=== PATIENT | female | born 1985 | race African-American/Black ===

== ENCOUNTER 2016-08-09 13:44 | Emergency (ER) | payer OTHER ==
[~2016-08-09] VITALS: Ht 160 cm; Wt 132.0 kg
[~2016-08-09 13:44] MED LIST: AMOX875 PO; CHLO.12%30 SSP; CLIN150 PO; IBUP600T26 PO; IBUP800T23 PO; MMW SSP; ROBA750T3 PO; TRAM50 PO; ULTR50TA PO
[2016-08-09 13:48] VITALS: PULSE 72; RESP 16; TEMP 99.2; O2SAT 100
--- NOTE | 2016-08-09 15:09 | PD ---
HPI . flu like symptoms Chief Complaint: Cold / Flu Symptoms Time Seen by Provider: 15:09 Travel History International Travel<30 days: No Contact w/Intl Traveler<30days: No Traveled to known affect area: No History of Present Illness HPI 30 Year-old female no significant past medical history here with complaints of flulike symptoms for the past week. Patient says she has had fever, but never checked her temperature. She also reports chills and body aches. Last night she had nausea and vomiting all night long. She says she was vomiting liquid. When asked about possibility of , she says it does exist. She denies any sore throat, cough, chest pain, or abdominal pain. She has no other complaints. PFSH Past Medical History Diminished Hearing: No ?: Unknown LMP: LMP END OF MAY Social History Alcohol Use: No Tobacco Use: Yes (/2 PPD) Substance Use: No Allergies-Medications (Allergen,Severity, Reaction): Coded Allergies: No Known Allergies (Unverified , 08/09/16) Reported Meds & Prescriptions Reported Meds & Active Scripts Active Ibuprofen 600 Mg Tab 600 Mg PO TID Robaxin-750 (Methocarbamol) 750 Mg Tab 750 Mg PO QID PRN Ultram (Tramadol HCl) 50 Mg Tab 1-2 Tabs PO Q6 PRN Peridex Oral Rinse (Chlorhexidine Gluconate) 0.12 % Елена 15 Ml SSP BID 10 Days Cleocin (Clindamycin HCl) 150 Mg Cap 2 Tab PO QID Review of Systems General / Constitutional: Positive: Fever, Chills Eyes: No: Visual changes HENT: No: Headaches Cardiovascular: No: Chest Pain or Discomfort Respiratory: No: Shortness of Breath Gastrointestinal: Positive: Nausea, No: Abdominal Pain Genitourinary: No: Dysuria Musculoskeletal: No: Pain Skin: No Rash Neurologic: No: Weakness Psychiatric: No: Depression Endocrine: No: Polydipsia Hematologic/Lymphatic: No: Easy Bruising Physical Exam Narrative GENERAL: AAO x 3, no acute distress, Well-nourished, well-developed patient. SKIN: Warm and dry. No visible rashes or bruising. HEAD: Normocephalic and atraumatic. EYES: No scleral icterus. No injection or drainage. ENT: No nasal drainage noted. Mucous membranes pink. Airway patent. Normal posterior pharynx. No edema no exudates. TMs normal bilaterally. NECK: Supple, trachea midline. No JVD. No lymphadenopathy. CARDIOVASCULAR: Regular rate and rhythm without murmurs, gallops, or rubs. RESPIRATORY: Breath sounds equal bilaterally. No accessory muscle use. No rhonchi or rales. GASTROINTESTINAL: Abdomen soft, non-tender, nondistended. EXTREMITIES: No cyanosis or edema. BACK: Nontender without obvious deformity. No CVA tenderness. PSYCH: AAO x 3, normal affect. Data Data Last Documented VS Vital Signs Date Time Temp Pulse Resp B/P Pulse Ox O2 Delivery O2 Flow Rate FiO2 08/09/16 13:48 99.2 72 16 100 Orders Ed Urine Pregnancytest Poc (08/09/16 15:12) MDM Medical Decision Making Medical Screen Exam Complete: Yes Emergency Medical Condition: Yes Medical Record Reviewed: Yes Differential Diagnosis viral syndrome, acute sinusitis, less likely PNA Narrative Course 30 Year-old female no significant past medical history here with complaints of flulike symptoms for the past week. Patient says she has had fever, but never checked her temperature. She also reports chills and body aches. Last night she had nausea and vomiting all night long. She says she was vomiting liquid. When asked about possibility of , she says it does exist. She denies any sore throat, cough, chest pain, or abdominal pain. She has no other complaints. Patient seen and examined. She does not have any acute findings on exam. I truly believe she may be . Urine test ordered. It is positive. She has no abdominal pain or any abdominal complaints. My suspicion for any type of ectopic is very low. Discussed with patient. Explained that she still establish with an [facility] for follow-up and treatment Patient verbalized understanding of instructions, questions were answered, and thanked me for their care. I advised them if their condition worsens, please return to the nearest emergency room for further care. Diagnosis Primary Impression: Nausea Patient Instructions: General Instructions Additional Instructions: Please return to emergency department if your symptoms return or worsen. Follow up with your primary care provider. Please establish with an [facility] for care. Med/Other Pt SpecificInfo: Prescription(s) given Disposition: 01 DISCHARGE HOME Condition: Stable Alejandra Vernon Aug 09, 2016 15:09
== END 2016-08-09 15:39 | disposition home or self-care (01) ==
LOC: PHED 13:44 → PHEFT 15:39
DX: R11.0 Nausea (principal); F17.210 Nicotine dependence, cigarettes, uncomplicated
CPT/HCPCS: 84703; 99284